=== PATIENT | female | born 1970 | race Caucasian/White ===

== ENCOUNTER 2018-06-07 10:17 | Inpatient (IN) | payer BC ==
[2018-06-07 11:11] LABS: ADD MAN DIFF? NO
[2018-06-07 11:16] LABS: BASOPHILS % 0.6 % (0.0-2.0); EOSINOPHILS # 0.2 10^3/ul (0.0-0.5); EOSINOPHILS % 3.3 % (0.0-7.0); HEMATOCRIT 27.6 % (37.0-47.0); LYMPHOCYTES # 1.7 10^3/ul (0.8-2.9); MEAN CORPUSCULAR HEMOGLOBIN 14.9 pg (29.0-33.0); MEAN CORPUSCULAR VOLUME 59.6 fl (82.0-101.0); MEAN PLATELET VOLUME 9.2 fl (7.4-10.4); MONOCYTE # 0.4 10^3/ul (0.3-0.9); MONOCYTES % 6.3 % (0.0-11.0); NEUTROPHIL # 4.6 10^3/ul (1.6-7.5); NEUTROPHILS % 65.7 % (39.0-77.0); PLATELET COUNT 341 10^3/UL (140-415); RED BLOOD COUNT 4.63 10^6/ul (4.20-5.40); RED CELL DISTRIBUTION WIDTH 20.5 % (11.5-14.5)
[2018-06-07 11:16] LABS: WHITE BLOOD COUNT 6.9 10^3/ul (4.8-10.8)
[2018-06-07 11:19] LABS: HEMOGLOBIN 6.9 g/dl (12.0-16.0); PATH REVIEW? YES; POSITIVE DIFF @See below
[2018-06-07 11:32] LABS: ALANINE AMINOTRANSFERASE 124 IU/L (13-69); ALBUMIN 4.7 g/dl (3.3-4.9); ALBUMIN/GLOBULIN RATIO 1.23; ALKALINE PHOSPHATASE 92 IU/L (42-121); ANION GAP 10 (5-13); ASPARTATE AMINO TRANSFERASE 28 IU/L (15-46); BILIRUBIN,INDIRECT 0.2 mg/dl (0-1.1); BILIRUBIN,TOTAL 0.2 mg/dl (0.2-1.3); BLOOD UREA NITROGEN 12 mg/dl (7-20); CALCIUM 9.5 mg/dl (8.4-10.2); CARBON DIOXIDE 24 mmol/L (21-31); CHLORIDE 107 mmol/L (97-110); CREATININE 0.57 mg/dl (0.44-1.00); Estimated GFR > 60 mL/min (>60); GLUCOSE 97 mg/dl (70-220); POTASSIUM 4.2 mmol/L (3.5-5.1); SODIUM 141 mmol/L (135-144); TOTAL PROTEIN 8.5 g/dl (6.1-8.1)
[2018-06-07 11:44] LABS: TROPONIN-I < 0.012 ng/ml (0.000-0.120)
[2018-06-07 11:45] LABS: INR 0.98; PROTIME 13.1 Sec (11.9-14.9)
[2018-06-07 11:46] LABS: PARTIAL THROMBOPLASTIN TIME 25.3 Sec (23.0-35.0)
[2018-06-07] MEDS: SOD CHLORIDE 0.9% 0 ML IV (11:48)
[2018-06-07] MEDS ORDERED: ONDANSETRON 4 MG INJ IV (12:30)
[2018-06-07] MEDS ORDERED: ACETAMINOPHEN 325 MG TAB PO (12:30)
[2018-06-07 12:49] LABS: ANISOCYTOSIS 3+ (0-0); BASOPHILS % (M) 1 % (0-2); ELLIPTO 1+ (0-0); EOSINOPHILS % (M) 3 % (0-7); GIANT THROMBO% (M) 2 % (0-0); HYPOCHROMASIA 3+ (0-0); LYMPHOCYTES #M 1.9 10^3/ul (0.8-2.9); LYMPHOCYTES % (M) 28 % (15-51); MICROCYTOSIS 3+ (0-0); MONOCYTE #M 0.2 10^3/ul (0.3-0.9); MONOCYTES % (M) 4 % (0-11); OVALOCYTES 1+ (0-0); PLATELET ESTIMATE NORMAL; POIKILOCYTOSIS 2+ (0-0); POLYCHROMASIA 1+ (0-0); SEGMENTED NEUTROPHILS (M) % 64 % (39-77); SMUDGE%M 5 % (0-0); TEAR DROP CELLS 1+ (0-0)
[2018-06-07 20:36] LABS: IMMEDIATE SPIN CROSSMATCH 1 2
[2018-06-08 05:29] LABS: ADD MAN DIFF? NO
[2018-06-08 05:33] LABS: ABNORMAL IP MESSAGE 1; BASOPHILS % 0.5 % (0.0-2.0); EOSINOPHILS # 0.3 10^3/ul (0.0-0.5); HEMATOCRIT 31.8 % (37.0-47.0); HEMOGLOBIN 8.6 g/dl (12.0-16.0); LYMPHOCYTES # 2.1 10^3/ul (0.8-2.9); LYMPHOCYTES % 27.7 % (15.0-51.0); MEAN CORPUSCULAR HEMOGLOBIN 17.3 pg (29.0-33.0); MEAN CORPUSCULAR VOLUME 64.1 fl (82.0-101.0); MEAN PLATELET VOLUME 9.5 fl (7.4-10.4); MONOCYTE # 0.7 10^3/ul (0.3-0.9); MONOCYTES % 8.7 % (0.0-11.0); NEUTROPHIL # 4.4 10^3/ul (1.6-7.5); PLATELET COUNT 309 10^3/UL (140-415); RED BLOOD COUNT 4.96 10^6/ul (4.20-5.40); RED CELL DISTRIBUTION WIDTH 25.8 % (11.5-14.5)
[2018-06-08 05:33] LABS: WHITE BLOOD COUNT 7.5 10^3/ul (4.8-10.8)
[2018-06-08] MEDS: PANTOPRAZOLE (EC) 40 MG TAB PO (05:43)
[2018-06-08 05:44] LABS: POSITIVE DIFF @See below
[2018-06-08 06:00] LABS: ANION GAP 6 (5-13); BLOOD UREA NITROGEN 15 mg/dl (7-20); CALCIUM 9.4 mg/dl (8.4-10.2); CARBON DIOXIDE 27 mmol/L (21-31); CHLORIDE 109 mmol/L (97-110); CREATININE 0.68 mg/dl (0.44-1.00); Estimated GFR > 60 mL/min (>60); GLUCOSE 95 mg/dl (70-220); POTASSIUM 5.2 mmol/L (3.5-5.1); SODIUM 142 mmol/L (135-144)
[2018-06-08 06:02] LABS: IRON 28 ug/dl (35-150)
[2018-06-08 06:11] LABS: % IRON SATURATION 6 % SAT (22-52); TOTAL IRON BINDING CAPACITY 440 ug/dl (241-421)
[2018-06-08] MEDS: SODIUM POLYSTYRENE 15 GM KIT (POWDER + SORBITOL) PO (11:49)
== END 2018-06-08 16:16 | disposition home or self-care (01) | DRG 812 ==
LOC: E/R 10:17 → MS1 12:13
PROC: 30233N1 Transfusion of Nonautologous Red Blood Cells into Peripheral Vein, Percutaneous Approach (ICD-10-PCS; principal; 2018-06-07)
DX: D50.9 Iron deficiency anemia, unspecified (principal); N93.8 Other specified abnormal uterine and vaginal bleeding; J45.909 Unspecified asthma, uncomplicated; N92.0 Excessive and frequent menstruation with regular cycle
CPT/HCPCS: 36415; 36430; 76856; 80048; 80053; 81025; 83540; 84132; 84484; 85025; 85610; 85730; 86850; 86900; 86901; 86920; 93005; 99291-25